=== PATIENT | female | born 1940 | race Two or more races ===

== ENCOUNTER 2022-09-19 03:29 | Inpatient (IN) | payer MEDICARE, OTHER ==
[~2022-09-19] VITALS: Ht 152.4 cm; Wt 88.5 kg
[2022-09-19] MEDS ORDERED: hydrALAZINE HCL IV 20 MG VIAL IV PRN (05:30)
[2022-09-19] MEDS ORDERED: ONDANSETRON HCL/PF 4 MG/2 ML VIAL IVP PRN ×2 (05:30→14:30)
[2022-09-19] MEDS ORDERED: *INSULIN REGULAR(HUMULIN R)HUM 100 UNIT/ML VIAL SQ PRN (05:30)
[2022-09-19] MEDS ORDERED: ACETAMINOPHEN 325 MG TABLET PO PRN (05:30)
[2022-09-19] MEDS ORDERED: INSULIN REGULAR, HUMAN 100 UNIT/ML 3 ML VIAL SQ PRN (05:30)
[2022-09-19] MEDS ORDERED: DEXTROSE 50%-WATER 50 ML DISP.SYRIN IV PRN ×2 (05:30→12:00)
[2022-09-19] MEDS ORDERED: MORPHINE SULFATE INJ 2 MG/ML DISP.SYRIN IV PRN (05:30)
[2022-09-19] MEDS ORDERED: CEFEPIME 1 GM in IV D5W 50 ML IV ONE (06:00)
[2022-09-19] MEDS: AZITHROMYCIN 500 MG in IV D5W 250 ML IV SCH (06:43)
[2022-09-19] MEDS ORDERED: BLOOD SUGAR DIAGNOSTIC 1 EACH STRIP VI SCH (07:30)
[2022-09-19] MEDS ORDERED: CEFEPIME 2 GM in IV D5W 100 ML IV SCH (08:00)
[2022-09-19] MEDS ORDERED: HEPARIN SODIUM, PORCINE 5000 UNITS/1 ML VIAL SQ SCH (09:00)
[2022-09-19] MEDS: BLOOD SUGAR DIAGNOSTIC 1 EACH STRIP IN SCH ×3 (11:53→21:07)
[2022-09-19 12:00] VITALS: BP 134/86; TEMP 98.1; O2SAT 99
[2022-09-19 12:33] LABS: BASOPHILS % (AUTO) 0.5 % (0.0-2.0); EOSINOPHILS % (AUTO) 1.2 % (0.0-6.0); HEMATOCRIT 35 % (33-45); HEMOGLOBIN 11.6 g/dL (11.5-14.8); LYMPHOCYTES # (AUTO) 0.6 K/uL (0.8-4.8); LYMPHOCYTES % (AUTO) 9.6 % (20.0-44.0); MEAN CORPUSCULAR HGB CONC 34 g/dl (31.0-36.0); MEAN CORPUSCULAR VOLUME 103 fL (82-100); MONOCYTES # (AUTO) 0.4 K/uL (0.1-1.30); MONOCYTES % (AUTO) 6.6 % (2.0-12.0); NEUTROPHILS # (AUTO) 5.2 K/uL (1.8-8.9); NEUTROPHILS % (AUTO) 82.1 % (43.0-81.0); PLATELET COUNT (AUTO) 93 K/uL (150-450); RED BLOOD CELL COUNT(AUTO) 3.37 MIL/uL (4.0-5.2); WHITE BLOOD COUNT (AUTO) 6.4 K/uL (4.3-11.0)
[2022-09-19 12:42] LABS: CALCIUM, SERUM 8.5 mg/dL (8.5-10.1); CARBON DIOXIDE 31 mmol/L (21-32); CHLORIDE 104 mmol/L (98-107); CREATININE 0.5 mg/dL (0.6-1.3); GLUCOSE 213 mg/dL (74-106); MAGNESIUM 1.7 mg/dL (1.8-2.4); PHOSPHORUS 3.8 mg/dL (2.5-4.9); POTASSIUM 3.8 mmol/L (3.5-5.1); SODIUM SERUM 141 mmol/L (136-145); UREA NITROGEN, BLOOD 18 mg/dL (7-18)
[2022-09-19] MEDS: INSULIN REGULAR, HUMAN 100 UNIT/ML 3 ML VIAL SQ PRN (13:00)
[2022-09-19] MEDS ORDERED: hydrALAZINE HCL 25 MG TABLET PO SCH (14:30)
[2022-09-19] MEDS ORDERED: GABAPENTIN 400 MG CAPSULE PO SCH (14:30)
[2022-09-19] MEDS ORDERED: ZOLPIDEM TARTRATE 5 MG TABLET PO PRN (14:30)
[2022-09-19] MEDS: METOPROLOL SUCCINATE 50 MG TAB.SR.24H PO SCH (14:57)
[2022-09-19] MEDS: hydrALAZINE HCL 25 MG TABLET PO SCH ×2 (14:57→21:06)
[2022-09-19] MEDS: METFORMIN 500 MG TABLET PO SCH (14:57)
[2022-09-19] MEDS: DIGOXIN 0.125 MG TABLET PO SCH (14:57)
[2022-09-19] MEDS: APIXABAN 5 MG TABLET PO SCH ×2 (15:00→21:07)
[2022-09-19] MEDS ORDERED: KEY,NONCONTROL,TO KEEP IN PYXI 1 EA MC ONE (15:42)
[2022-09-19] MEDS: GUAIFENESIN LA 600 MG TABLET.SA PO SCH (16:14)
[2022-09-19] MEDS: DOCUSATE SODIUM 100 MG CAPSULE PO SCH (16:14)
[2022-09-19] MEDS ORDERED: HOME MED MISCELLANEOUS TP PRN (16:30)
[2022-09-19] MEDS ORDERED: DICLOFENAC 1% TP SCH (17:00)
[2022-09-19 20:00] VITALS: BP 135/80; TEMP 98.2; O2SAT 99
[2022-09-19] MEDS: GABAPENTIN 400 MG CAPSULE PO SCH (21:05)
[2022-09-19] MEDS: CEFTRIAXONE 1 G in IV D5W 50 ML IV SCH (21:06)
[2022-09-20] VITALS: BP 147/99; TEMP 97.6; O2SAT 95
[2022-09-20 04:00] VITALS: BP 134/74; TEMP 97.9; O2SAT 95
[2022-09-20] MEDS: AZITHROMYCIN 500 MG in IV D5W 250 ML IV SCH (05:30)
[2022-09-20 06:15] LABS: BILIRUBIN,URINE NEGATIVE (NEGATIVE); COLOR,URINE YELLOW (YELLOW); LEUKOCYTE ESTERASE ,URINE NEGATIVE (NEGATIVE); NITRITE, URINE NEGATIVE (NEGATIVE); PROTEIN,URINE NEGATIVE (NEGATIVE); UGLUCOSE NEGATIVE (NEGATIVE); UROBILINOGEN,URINE 0.2 EU/dL (0.2)
[2022-09-20] MEDS: BLOOD SUGAR DIAGNOSTIC 1 EACH STRIP IN SCH ×4 (07:34→21:35)
[2022-09-20 07:38] LABS: BASOPHILS % (AUTO) 0.7 % (0.0-2.0); HEMATOCRIT 35 % (33-45); HEMOGLOBIN 11.9 g/dL (11.5-14.8); LYMPHOCYTES # (AUTO) 0.9 K/uL (0.8-4.8); LYMPHOCYTES % (AUTO) 20.3 % (20.0-44.0); MEAN CORPUSCULAR HGB CONC 34 g/dl (31.0-36.0); MEAN CORPUSCULAR VOLUME 103 fL (82-100); MONOCYTES # (AUTO) 0.5 K/uL (0.1-1.30); MONOCYTES % (AUTO) 11.8 % (2.0-12.0); NEUTROPHILS # (AUTO) 2.9 K/uL (1.8-8.9); NEUTROPHILS % (AUTO) 64.2 % (43.0-81.0); PLATELET COUNT (AUTO) 94 K/uL (150-450); RED BLOOD CELL COUNT(AUTO) 3.43 MIL/uL (4.0-5.2); WHITE BLOOD COUNT (AUTO) 4.6 K/uL (4.3-11.0)
[2022-09-20 08:00] VITALS: BP 126/68; TEMP 98.2; O2SAT 95
[2022-09-20 08:00] LABS: CHOLESTEROL 105 mg/dL (<200); HDL CHOLESTEROL 51 mg/dL (40-60); LDL 46 mg/dL (0-99); TRIGLYCERIDES 45 mg/dL (30-150)
[2022-09-20 08:02] LABS: IRON, SERUM 82 ug/dl (50-175); TOTAL IRON BINDING CAPACITY 267 ug/dl (250-450)
[2022-09-20 08:08] LABS: ALANINE AMINOTRANSFERASE 25 U/L (12-78); ALBUMIN 3.1 g/dL (3.4-5.0); ALKALINE PHOSPHATASE 38 U/L (46-116); ASPARTATE AMINOTRANSFERASE 19 U/L (15-37); BILIRUBIN,TOTAL 0.7 mg/dL (0.2-1.0); CALCIUM, SERUM 8.6 mg/dL (8.5-10.1); CARBON DIOXIDE 33 mmol/L (21-32); CHLORIDE 105 mmol/L (98-107); CREATININE 0.4 mg/dL (0.6-1.3); GLUCOSE 122 mg/dL (74-106); MAGNESIUM 1.8 mg/dL (1.8-2.4); POTASSIUM 3.8 mmol/L (3.5-5.1); SODIUM SERUM 142 mmol/L (136-145); TOTAL PROTEIN, SERUM 6.1 g/dL (6.4-8.2); UREA NITROGEN, BLOOD 11 mg/dL (7-18)
[2022-09-20] MEDS ORDERED: BUPRENORPHINE 20 MCG/HR TP SCH (09:00)
[2022-09-20] MEDS: METOPROLOL SUCCINATE 50 MG TAB.SR.24H PO SCH (09:39)
[2022-09-20] MEDS: CHOLECALCIFEROL 1,000 UNIT TABLET (VIT D3) PO SCH (09:40)
[2022-09-20] MEDS: DOCUSATE SODIUM 100 MG CAPSULE PO SCH ×2 (09:41→16:36)
[2022-09-20] MEDS: LISINOPRIL (20MG) 20 MG TABLET PO SCH (09:41)
[2022-09-20] MEDS: GUAIFENESIN LA 600 MG TABLET.SA PO SCH ×2 (09:41→16:36)
[2022-09-20] MEDS: hydrALAZINE HCL 25 MG TABLET PO SCH ×2 (09:42→20:36)
[2022-09-20] MEDS: METFORMIN 500 MG TABLET PO SCH (09:42)
[2022-09-20] MEDS: FERROUS SULFATE (325 MG) 325 MG/TAB TABLET PO SCH (09:42)
[2022-09-20] MEDS: APIXABAN 5 MG TABLET PO SCH ×2 (09:44→20:37)
[2022-09-20] MEDS: PANTOPRAZOLE 40 MG TABLET.DR PO SCH (09:47)
[2022-09-20] MEDS: CEFTRIAXONE 1 G in IV D5W 50 ML IV SCH ×2 (09:47→20:39)
[2022-09-20 12:00] VITALS: BP 125/83; TEMP 98.2; O2SAT 95
[2022-09-20] MEDS: DIGOXIN 0.125 MG TABLET PO SCH (12:43)
[2022-09-20] MEDS ORDERED: KEY,NONCONTROL,TO KEEP IN PYXI 1 EA MC ONE (13:55)
[2022-09-20] MEDS ORDERED: FUROSEMIDE 20 MG TABLET PO SCH (14:00)
[2022-09-20 16:00] VITALS: BP 144/81; TEMP 97.9; O2SAT 95
[2022-09-20] MEDS ORDERED: PANT40TA2 PO (16:35)
[2022-09-20] MEDS ORDERED: APIX5TAB PO (16:35)
[2022-09-20] MEDS ORDERED: FERR325T23 PO (16:35)
[2022-09-20] MEDS ORDERED: METO-358 PO (16:35)
[2022-09-20] MEDS ORDERED: LISI40TA13 PO (16:35)
[2022-09-20] MEDS ORDERED: DIGO125T PO (16:35)
[2022-09-20] MEDS ORDERED: HYDR-4076 PO (16:35)
[2022-09-20] MEDS ORDERED: VOLTAREN GEL TP (16:35)
[2022-09-20] MEDS ORDERED: [UNRECOGNIZED DRUG - OTHER] PO (16:36)
[2022-09-20] MEDS ORDERED: GABA-536 PO (16:36)
[2022-09-20] MEDS ORDERED: BUPR1PAT21 TD (16:36)
[2022-09-20] MEDS ORDERED: METF-440 PO (16:36)
[2022-09-20] MEDS: INSULIN REGULAR, HUMAN 100 UNIT/ML 3 ML VIAL SQ PRN (16:49)
[2022-09-20 20:00] VITALS: BP 142/81; TEMP 98.3; O2SAT 93
[2022-09-20] MEDS: GABAPENTIN 400 MG CAPSULE PO SCH (20:39)
[2022-09-20] MEDS: *INSULIN REGULAR(HUMULIN R)HUM 100 UNIT/ML VIAL SQ PRN (20:43)
[2022-09-20] MEDS: hydrOXYzine HCL SYRUP 10 MG/5 ML UDC PO PRN (20:44)
[2022-09-21] VITALS (7 sets, daily range): BP systolic 110–164; BP diastolic 62–86; TEMP 97.5–98.9; O2SAT 95–98
[2022-09-21] MEDS: AZITHROMYCIN 500 MG in IV D5W 250 ML IV SCH (06:01)
[2022-09-21 06:36] LABS: BASOPHILS % (AUTO) 0.5 % (0.0-2.0); HEMATOCRIT 37 % (33-45); HEMOGLOBIN 12.4 g/dL (11.5-14.8); LYMPHOCYTES # (AUTO) 1.4 K/uL (0.8-4.8); LYMPHOCYTES % (AUTO) 30.3 % (20.0-44.0); MEAN CORPUSCULAR HGB CONC 33 g/dl (31.0-36.0); MEAN CORPUSCULAR VOLUME 103 fL (82-100); MONOCYTES # (AUTO) 0.6 K/uL (0.1-1.30); MONOCYTES % (AUTO) 12.3 % (2.0-12.0); NEUTROPHILS # (AUTO) 2.5 K/uL (1.8-8.9); NEUTROPHILS % (AUTO) 52.9 % (43.0-81.0); PLATELET COUNT (AUTO) 119 K/uL (150-450); RED BLOOD CELL COUNT(AUTO) 3.61 MIL/uL (4.0-5.2); WHITE BLOOD COUNT (AUTO) 4.7 K/uL (4.3-11.0)
[2022-09-21 06:59] LABS: CALCIUM, SERUM 9.3 mg/dL (8.5-10.1); CARBON DIOXIDE 35 mmol/L (21-32); CHLORIDE 103 mmol/L (98-107); CREATININE 0.5 mg/dL (0.6-1.3); GLUCOSE 111 mg/dL (74-106); MAGNESIUM 1.8 mg/dL (1.8-2.4); PHOSPHORUS 4.6 mg/dL (2.5-4.9); SODIUM SERUM 145 mmol/L (136-145); UREA NITROGEN, BLOOD 14 mg/dL (7-18)
[2022-09-21] MEDS: BLOOD SUGAR DIAGNOSTIC 1 EACH STRIP IN SCH ×4 (08:33→22:19)
[2022-09-21] MEDS: FUROSEMIDE 40 MG/4 ML VIAL IV SCH ×3 (08:45→16:10)
[2022-09-21] MEDS: PANTOPRAZOLE 40 MG TABLET.DR PO SCH (08:45)
[2022-09-21] MEDS: POTASSIUM CHLORIDE 20 MEQ TAB.PRT.SR PO SCH ×3 (08:45→11:32)
[2022-09-21] MEDS: APIXABAN 5 MG TABLET PO SCH ×2 (09:51→21:59)
[2022-09-21] MEDS: METFORMIN 500 MG TABLET PO SCH (09:52)
[2022-09-21] MEDS: METOPROLOL SUCCINATE 50 MG TAB.SR.24H PO SCH (09:52)
[2022-09-21] MEDS: DOCUSATE SODIUM 100 MG CAPSULE PO SCH ×2 (09:52→16:09)
[2022-09-21] MEDS: LISINOPRIL (20MG) 20 MG TABLET PO SCH (09:53)
[2022-09-21] MEDS: CHOLECALCIFEROL 1,000 UNIT TABLET (VIT D3) PO SCH (09:53)
[2022-09-21] MEDS: FERROUS SULFATE (325 MG) 325 MG/TAB TABLET PO SCH (09:54)
[2022-09-21] MEDS: CEFTRIAXONE 1 G in IV D5W 50 ML IV SCH (09:54)
[2022-09-21] MEDS: hydrALAZINE HCL 25 MG TABLET PO SCH ×2 (09:54→21:57)
[2022-09-21] MEDS: GUAIFENESIN LA 600 MG TABLET.SA PO SCH ×2 (09:55→16:09)
[2022-09-21] MEDS: MAG HYDROX/AL HYDROX/SIMETH 30 ML UDC PO PRN (11:57)
[2022-09-21] MEDS: DIGOXIN 0.125 MG TABLET PO SCH (12:38)
[2022-09-21] MEDS: INSULIN REGULAR, HUMAN 100 UNIT/ML 3 ML VIAL SQ PRN (17:19)
[2022-09-21] MEDS: hydrOXYzine HCL SYRUP 10 MG/5 ML UDC PO PRN (17:21)
[2022-09-21] MEDS: GABAPENTIN 400 MG CAPSULE PO SCH (20:04)
[2022-09-21] MEDS: *INSULIN REGULAR(HUMULIN R)HUM 100 UNIT/ML VIAL SQ PRN (22:20)
[2022-09-22] VITALS: BP 112/61; TEMP 98.2; O2SAT 97
[2022-09-22 04:00] VITALS: BP 117/69; TEMP 97.9; O2SAT 95
[2022-09-22] MEDS: AZITHROMYCIN 250 MG TABLET PO SCH (06:22)
[2022-09-22 06:43] LABS: BASOPHILS % (AUTO) 0.6 % (0.0-2.0); HEMATOCRIT 38 % (33-45); HEMOGLOBIN 12.8 g/dL (11.5-14.8); LYMPHOCYTES # (AUTO) 1.6 K/uL (0.8-4.8); LYMPHOCYTES % (AUTO) 25.8 % (20.0-44.0); MEAN CORPUSCULAR HGB CONC 34 g/dl (31.0-36.0); MEAN CORPUSCULAR VOLUME 102 fL (82-100); MONOCYTES # (AUTO) 0.7 K/uL (0.1-1.30); MONOCYTES % (AUTO) 10.7 % (2.0-12.0); NEUTROPHILS # (AUTO) 3.8 K/uL (1.8-8.9); NEUTROPHILS % (AUTO) 59.9 % (43.0-81.0); PLATELET COUNT (AUTO) 134 K/uL (150-450); RED BLOOD CELL COUNT(AUTO) 3.74 MIL/uL (4.0-5.2); WHITE BLOOD COUNT (AUTO) 6.3 K/uL (4.3-11.0)
[2022-09-22] MEDS: BLOOD SUGAR DIAGNOSTIC 1 EACH STRIP IN SCH ×4 (07:04→21:09)
[2022-09-22] MEDS: INSULIN REGULAR, HUMAN 100 UNIT/ML 3 ML VIAL SQ PRN ×4 (07:07→21:45)
[2022-09-22 07:27] LABS: ALANINE AMINOTRANSFERASE 22 U/L (12-78); ALBUMIN 3.5 g/dL (3.4-5.0); ALKALINE PHOSPHATASE 40 U/L (46-116); ASPARTATE AMINOTRANSFERASE 18 U/L (15-37); BILIRUBIN,TOTAL 0.6 mg/dL (0.2-1.0); CALCIUM, SERUM 9.8 mg/dL (8.5-10.1); CARBON DIOXIDE 38 mmol/L (21-32); CHLORIDE 99 mmol/L (98-107); CREATININE 0.5 mg/dL (0.6-1.3); GLUCOSE 122 mg/dL (74-106); MAGNESIUM 1.9 mg/dL (1.8-2.4); PHOSPHORUS 5.4 mg/dL (2.5-4.9); POTASSIUM 4.2 mmol/L (3.5-5.1); SODIUM SERUM 144 mmol/L (136-145); TOTAL PROTEIN, SERUM 6.8 g/dL (6.4-8.2); UREA NITROGEN, BLOOD 24 mg/dL (7-18)
[2022-09-22 08:00] VITALS: BP 104/71; TEMP 98.5; O2SAT 97
[2022-09-22] MEDS: LISINOPRIL (20MG) 20 MG TABLET PO SCH (08:42)
[2022-09-22] MEDS: CHOLECALCIFEROL 1,000 UNIT TABLET (VIT D3) PO SCH (08:49)
[2022-09-22] MEDS: METOPROLOL SUCCINATE 50 MG TAB.SR.24H PO SCH (08:49)
[2022-09-22] MEDS: GUAIFENESIN LA 600 MG TABLET.SA PO SCH ×2 (08:50→17:19)
[2022-09-22] MEDS: METFORMIN 500 MG TABLET PO SCH (08:50)
[2022-09-22] MEDS: hydrALAZINE HCL 25 MG TABLET PO SCH ×2 (08:50→20:56)
[2022-09-22] MEDS: DOCUSATE SODIUM 100 MG CAPSULE PO SCH ×2 (08:50→17:19)
[2022-09-22] MEDS: CEFTRIAXONE 2 G in IV D5W 100 ML IV SCH (08:51)
[2022-09-22] MEDS: APIXABAN 5 MG TABLET PO SCH ×2 (08:54→20:56)
[2022-09-22] MEDS ORDERED: FUROSEMIDE 20 MG/2 ML VIAL IV SCH (09:00)
[2022-09-22] MEDS: PANTOPRAZOLE 40 MG TABLET.DR PO SCH (09:09)
[2022-09-22] MEDS ORDERED: FUROSEMIDE 20 MG/2 ML VIAL IV ONE (09:30)
[2022-09-22 12:00] VITALS: BP 103/70; TEMP 98.7; O2SAT 95
[2022-09-22] MEDS: DIGOXIN 0.125 MG TABLET PO SCH (13:17)
[2022-09-22 16:00] VITALS: BP 136/69; TEMP 98.2; O2SAT 96
[2022-09-22 20:00] VITALS: BP 120/65; TEMP 98; O2SAT 95
[2022-09-22] MEDS: GABAPENTIN 400 MG CAPSULE PO SCH (20:55)
[2022-09-22] MEDS: MAG HYDROX/AL HYDROX/SIMETH 30 ML UDC PO PRN (22:19)
[2022-09-23] VITALS: BP 105/53; TEMP 98; O2SAT 97
[2022-09-23 04:00] VITALS: BP 110/60; TEMP 98; O2SAT 97
[2022-09-23] MEDS: AZITHROMYCIN 250 MG TABLET PO SCH (06:01)
[2022-09-23 06:49] LABS: BASOPHILS % (AUTO) 0.8 % (0.0-2.0); EOSINOPHILS % (AUTO) 4.2 % (0.0-6.0); HEMATOCRIT 40 % (33-45); HEMOGLOBIN 13.5 g/dL (11.5-14.8); LYMPHOCYTES # (AUTO) 2.1 K/uL (0.8-4.8); MEAN CORPUSCULAR HGB CONC 34 g/dl (31.0-36.0); MEAN CORPUSCULAR VOLUME 102 fL (82-100); MONOCYTES # (AUTO) 0.6 K/uL (0.1-1.30); MONOCYTES % (AUTO) 11.4 % (2.0-12.0); NEUTROPHILS # (AUTO) 2.6 K/uL (1.8-8.9); NEUTROPHILS % (AUTO) 46.6 % (43.0-81.0); PLATELET COUNT (AUTO) 136 K/uL (150-450); RED BLOOD CELL COUNT(AUTO) 3.91 MIL/uL (4.0-5.2); WHITE BLOOD COUNT (AUTO) 5.5 K/uL (4.3-11.0)
[2022-09-23 07:32] LABS: CALCIUM, SERUM 10.2 mg/dL (8.5-10.1); CREATININE 0.6 mg/dL (0.6-1.3); MAGNESIUM 1.8 mg/dL (1.8-2.4); PHOSPHORUS 5.3 mg/dL (2.5-4.9); POTASSIUM 4.1 mmol/L (3.5-5.1)
[2022-09-23] MEDS: BLOOD SUGAR DIAGNOSTIC 1 EACH STRIP IN SCH ×4 (07:38→21:51)
[2022-09-23 08:00] VITALS: BP 114/59; TEMP 98.1; O2SAT 97
[2022-09-23] MEDS: CHOLECALCIFEROL 1,000 UNIT TABLET (VIT D3) PO SCH (08:23)
[2022-09-23] MEDS: hydrALAZINE HCL 25 MG TABLET PO SCH ×2 (08:24→20:51)
[2022-09-23] MEDS: DOCUSATE SODIUM 100 MG CAPSULE PO SCH ×2 (08:24→16:36)
[2022-09-23] MEDS: LISINOPRIL (20MG) 20 MG TABLET PO SCH (08:25)
[2022-09-23] MEDS: GUAIFENESIN LA 600 MG TABLET.SA PO SCH ×2 (08:25→16:36)
[2022-09-23] MEDS: PANTOPRAZOLE 40 MG TABLET.DR PO SCH (08:25)
[2022-09-23] MEDS: METFORMIN 500 MG TABLET PO SCH (08:25)
[2022-09-23] MEDS: METOPROLOL SUCCINATE 50 MG TAB.SR.24H PO SCH (08:26)
[2022-09-23] MEDS: APIXABAN 5 MG TABLET PO SCH ×2 (08:27→21:07)
[2022-09-23] MEDS: CEFTRIAXONE 2 G in IV D5W 100 ML IV SCH (08:29)
[2022-09-23] MEDS: INSULIN REGULAR, HUMAN 100 UNIT/ML 3 ML VIAL SQ PRN ×2 (08:38→17:04)
[2022-09-23] MEDS ORDERED: FUROSEMIDE 20 MG/2 ML VIAL IV SCH (09:00)
[2022-09-23] MEDS: ACETAMINOPHEN 325 MG TABLET PO PRN ×2 (11:36→16:36)
[2022-09-23 12:00] VITALS: BP 104/79; TEMP 98.1; O2SAT 97
[2022-09-23] MEDS: DIGOXIN 0.125 MG TABLET PO SCH (12:14)
[2022-09-23 16:00] VITALS: BP 123/84; TEMP 98.2; O2SAT 94
[2022-09-23 20:00] VITALS: BP 123/84; TEMP 98.2; O2SAT 94
[2022-09-23] MEDS: GABAPENTIN 400 MG CAPSULE PO SCH (20:50)
[2022-09-23] MEDS ORDERED: ACET325T53 PO (20:54)
[2022-09-23] MEDS ORDERED: PANT40TA49 PO (20:54)
[2022-09-23] MEDS ORDERED: METO50TA7 PO (20:54)
[2022-09-23] MEDS ORDERED: METF-440 PO (20:54)
[2022-09-23] MEDS ORDERED: HYDR10SY12 PO (20:54)
[2022-09-23] MEDS ORDERED: INSU100V28 SQ (20:54)
[2022-09-23] MEDS ORDERED: ONDA4VIA23 PO (20:54)
[2022-09-23] MEDS ORDERED: *INS REG3 SQ (20:54)
[2022-09-23] MEDS ORDERED: DOCU100C36 PO (20:54)
[2022-09-23] MEDS ORDERED: DIGO125T PO (20:54)
[2022-09-23] MEDS ORDERED: ZOLP5TAB8 PO (20:54)
[2022-09-23] MEDS ORDERED: Blood Sugar Diagnostic IN (20:54)
[2022-09-23] MEDS ORDERED: APIX5TAB PO (20:54)
[2022-09-23] MEDS ORDERED: GUAI600T53 PO (20:54)
[2022-09-23] MEDS ORDERED: LISI20TA30 PO (20:54)
[2022-09-23] MEDS ORDERED: DEXT50DI8 IV (20:54)
[2022-09-23] MEDS ORDERED: CHOL100040 PO (20:54)
[2022-09-23] MEDS ORDERED: HYDR-4076 PO (20:54)
[2022-09-23] MEDS ORDERED: GABA-536 PO (20:54)
[2022-09-23] MEDS ORDERED: CEFT2VIA14 IV (20:54)
[2022-09-23] MEDS ORDERED: MAG30ORA PO (20:54)
[2022-09-23] MEDS: *INSULIN REGULAR(HUMULIN R)HUM 100 UNIT/ML VIAL SQ PRN (22:14)
[2022-09-24 00:08] VITALS: BP 138/71; TEMP 98; O2SAT 100
[2022-09-24 04:17] VITALS: BP 140/65; TEMP 98; O2SAT 100
[2022-09-24 06:12] LABS: BASOPHILS # (AUTO) 0.1 K/uL (0.0-0.2); BASOPHILS % (AUTO) 1.4 % (0.0-2.0); EOSINOPHILS % (AUTO) 4.4 % (0.0-6.0); HEMATOCRIT 40 % (33-45); HEMOGLOBIN 13.2 g/dL (11.5-14.8); LYMPHOCYTES # (AUTO) 1.7 K/uL (0.8-4.8); LYMPHOCYTES % (AUTO) 31.6 % (20.0-44.0); MEAN CORPUSCULAR HGB CONC 33 g/dl (31.0-36.0); MEAN CORPUSCULAR VOLUME 102 fL (82-100); MONOCYTES # (AUTO) 0.6 K/uL (0.1-1.30); MONOCYTES % (AUTO) 11.2 % (2.0-12.0); NEUTROPHILS # (AUTO) 2.7 K/uL (1.8-8.9); NEUTROPHILS % (AUTO) 51.4 % (43.0-81.0); PLATELET COUNT (AUTO) 134 K/uL (150-450); RED BLOOD CELL COUNT(AUTO) 3.92 MIL/uL (4.0-5.2); WHITE BLOOD COUNT (AUTO) 5.2 K/uL (4.3-11.0)
[2022-09-24 06:28] LABS: CALCIUM, SERUM 9.4 mg/dL (8.5-10.1); CARBON DIOXIDE 39 mmol/L (21-32); CHLORIDE 98 mmol/L (98-107); CREATININE 0.5 mg/dL (0.6-1.3); GLUCOSE 119 mg/dL (74-106); MAGNESIUM 1.8 mg/dL (1.8-2.4); PHOSPHORUS 4.4 mg/dL (2.5-4.9); POTASSIUM 3.8 mmol/L (3.5-5.1); SODIUM SERUM 138 mmol/L (136-145); UREA NITROGEN, BLOOD 26 mg/dL (7-18)
[2022-09-24] MEDS: BLOOD SUGAR DIAGNOSTIC 1 EACH STRIP IN SCH ×2 (07:30→11:16)
[2022-09-24] MEDS: PANTOPRAZOLE 40 MG TABLET.DR PO SCH (07:47)
[2022-09-24 08:00] VITALS: BP 140/65; TEMP 98.2; O2SAT 100
[2022-09-24] MEDS: LISINOPRIL (20MG) 20 MG TABLET PO SCH (09:00)
[2022-09-24] MEDS: METOPROLOL SUCCINATE 50 MG TAB.SR.24H PO SCH (09:00)
[2022-09-24] MEDS: CHOLECALCIFEROL 1,000 UNIT TABLET (VIT D3) PO SCH (09:02)
[2022-09-24] MEDS: GUAIFENESIN LA 600 MG TABLET.SA PO SCH (09:02)
[2022-09-24] MEDS: DOCUSATE SODIUM 100 MG CAPSULE PO SCH (09:02)
[2022-09-24] MEDS: METFORMIN 500 MG TABLET PO SCH (09:02)
[2022-09-24] MEDS: hydrALAZINE HCL 25 MG TABLET PO SCH (09:02)
[2022-09-24] MEDS: APIXABAN 5 MG TABLET PO SCH (09:04)
[2022-09-24] MEDS: CEFTRIAXONE 2 G in IV D5W 100 ML IV SCH (09:15)
[2022-09-24] MEDS: INSULIN REGULAR, HUMAN 100 UNIT/ML 3 ML VIAL SQ PRN (11:20)
[2022-09-24 12:00] VITALS: BP_SYST 125; BP_SYST 135; BP_DIAS 75; TEMP 98.5; TEMP 98.7; O2SAT 100
== END 2022-09-24 12:40 | DRG 193 ==
LOC: MEDSG1 03:29 → TELE1 05:23
PROVIDERS: ADMIT Internal Medicine; ATTEND Internal Medicine
DX: J18.9 Pneumonia, unspecified organism (principal); I11.0 Hypertensive heart disease with heart failure; I50.33 Acute on chronic diastolic (congestive) heart failure; N39.0 Urinary tract infection, site not specified; K21.9 Gastro-esophageal reflux disease without esophagitis; E78.5 Hyperlipidemia, unspecified; Z79.84 Long term (current) use of oral hypoglycemic drugs; G89.29 Other chronic pain; Z79.01 Long term (current) use of anticoagulants; Z79.82 Long term (current) use of aspirin; R26.2 Difficulty in walking, not elsewhere classified; Z91.81 History of falling; I08.0 Rheumatic disorders of both mitral and aortic valves; E11.9 Type 2 diabetes mellitus without complications; I27.20 Pulmonary hypertension, unspecified; E66.01 Morbid (severe) obesity due to excess calories; Z68.38 Body mass index [BMI] 38.0-38.9, adult; I48.91 Unspecified atrial fibrillation; Z79.899 Other long term (current) drug therapy; Z96.653 Presence of artificial knee joint, bilateral; M17.0 Bilateral primary osteoarthritis of knee; M06.9 Rheumatoid arthritis, unspecified; Z98.1 Arthrodesis status
CPT/HCPCS: 36415; 71045-TC; 80048-TC; 80053-TC; 80061-TC; 82962-TC; 83540-TC; 83605-TC; 83735-TC; 83880; 84100-TC; 84484-TC; 85025-TC; 87040-TC; 87081-TC; 87086-TC; 93307-TC; 94799-TC; 97112-TC; 97116-TC; 97530-TC; A4223; A6253; G0378; J0456; J0692; J0696; J1644; J1815; J1940; J2270; J7050; J7060; Q0177

== ENCOUNTER 2023-04-06 22:48 | Inpatient (IN) | payer MEDICARE, OTHER ==
[~2023-04-06] VITALS: Ht 152.4 cm; Wt 77.6 kg
[~2023-04-06 22:48] MED LIST: *INS REG3 SQ; ACET325T53 PO; APIX5TAB PO; BUPR1PAT21 TD; Blood Sugar Diagnostic IN; CEFT2VIA14 IV; CHOL100040 PO; DEXT50DI8 IV; DIGO125T PO; DOCU100C36 PO; FERR325T23 PO; GABA-536 PO; GUAI600T53 PO; HYDR-4076 PO; HYDR10SY12 PO; INSU100V28 SQ; LISI20TA30 PO; LISI40TA13 PO; MAG30ORA PO; METF-440 PO; METO-358 PO; METO50TA7 PO; ONDA4VIA23 PO; PANT40TA2 PO; PANT40TA49 PO; VOLTAREN GEL TP; ZOLP5TAB8 PO; [UNRECOGNIZED DRUG - OTHER] PO
[2023-04-07 00:45] VITALS: BP 142/96; TEMP 98; O2SAT 97
[2023-04-07] MEDS ORDERED: ONDANSETRON HCL/PF 4 MG/2 ML VIAL IVP PRN (02:00)
[2023-04-07] MEDS ORDERED: Z GUARD REMEDY 4 OZ OINT TP PRN (02:00)
[2023-04-07] MEDS ORDERED: ALBUTEROL FS 2.5 MG/3 ML VIAL.NEB NEB PRN (02:00)
[2023-04-07] MEDS ORDERED: IPRATROPIUM NEB FS 0.5 MG/2.5 ML AMPUL.NEB NEB PRN (02:00)
[2023-04-07] MEDS ORDERED: MAGNESIUM HYDROXIDE 30 ML UDC PO PRN (02:00)
[2023-04-07 02:18] LABS: HEMOGLOBIN 12.4 g/dL (11.5-14.8)
[2023-04-07 02:52] LABS: CALCIUM, SERUM 9.2 mg/dL (8.5-10.1); CREATININE 0.6 mg/dL (0.6-1.3); POTASSIUM 3.6 mmol/L (3.5-5.1)
[2023-04-07] MEDS: ZOLPIDEM TARTRATE 5 MG TABLET PO PRN (03:07)
[2023-04-07 04:00] VITALS: BP 136/90; TEMP 98; O2SAT 97
[2023-04-07 08:00] VITALS: BP 130/72; TEMP 98.1; O2SAT 100
[2023-04-07] MEDS ORDERED: MAGN100T3 PO (08:07)
[2023-04-07] MEDS ORDERED: FAMO20TA8 PO (08:07)
[2023-04-07] MEDS ORDERED: ALPR0.5T8 PO (08:07)
[2023-04-07] MEDS ORDERED: TYLENOL #4 PO (08:07)
[2023-04-07] MEDS ORDERED: MULT-1200 PO (08:07)
[2023-04-07] MEDS ORDERED: TOCI400V IV (08:07)
[2023-04-07] MEDS ORDERED: DICL100G26 TP (08:07)
[2023-04-07] MEDS ORDERED: GABA800T11 PO (08:07)
[2023-04-07] MEDS ORDERED: DENO60DI SQ (08:07)
[2023-04-07] MEDS ORDERED: CHOL500062 PO (08:07)
[2023-04-07] MEDS ORDERED: MELA1TAB15 PO (08:07)
[2023-04-07] MEDS: PANTOPRAZOLE 40 MG TABLET.DR PO SCH (08:36)
[2023-04-07] MEDS: ENOXAPARIN SODIUM 40 MG/0.4 ML DISP.SYRIN SQ SCH (08:37)
[2023-04-07 12:00] VITALS: BP 124/99; TEMP 98.4; O2SAT 100
[2023-04-07] MEDS ORDERED: DEXTROSE 50%-WATER 50 ML DISP.SYRIN IV PRN ×2 (15:00→15:30)
[2023-04-07] MEDS: FUROSEMIDE 40 MG/4 ML VIAL IV SCH (15:08)
[2023-04-07] MEDS: LACTULOSE 10 G/15 ML UDC (PYXIS) PO ONE (15:08)
[2023-04-07] MEDS: DIGOXIN 0.125 MG TABLET PO SCH (15:09)
[2023-04-07] MEDS: METOPROLOL SUCCINATE 50 MG TAB.SR.24H PO SCH (15:09)
[2023-04-07] MEDS: FAMOTIDINE (20 MG) 20 MG TABLET PO SCH (15:09)
[2023-04-07] MEDS: CHOLECALCIFEROL 1,000 UNIT TABLET (VIT D3) PO SCH (15:09)
[2023-04-07] MEDS: HYDROCODONE/APAP 5/325MG TABLET PO PRN (15:14)
[2023-04-07] MEDS ORDERED: INSULIN REGULAR, HUMAN 100 UNIT/ML 3 ML VIAL SQ PRN (15:30)
[2023-04-07 16:00] VITALS: BP 127/77; TEMP 98.4; O2SAT 100
[2023-04-07] MEDS: APIXABAN 5 MG TABLET PO SCH (16:04)
[2023-04-07] MEDS: hydrALAZINE HCL 25 MG TABLET PO SCH (16:05)
[2023-04-07] MEDS: BLOOD SUGAR DIAGNOSTIC 1 EACH STRIP IN SCH (17:19)
[2023-04-07] MEDS ORDERED: BLOOD SUGAR DIAGNOSTIC 1 EACH STRIP IN SCH (17:30)
[2023-04-07 20:00] VITALS: BP 146/79; TEMP 98.6; O2SAT 96
[2023-04-07] MEDS: SENNOSIDES 8.6 MG TABLET PO SCH (21:25)
[2023-04-07] MEDS: GABAPENTIN 400 MG CAPSULE PO SCH (21:26)
[2023-04-07] MEDS: ACETAMINOPHEN 325 MG TABLET PO PRN (21:44)
[2023-04-07] MEDS: INSULIN REGULAR, HUMAN 100 UNIT/ML 3 ML VIAL SQ PRN (22:05)
[2023-04-08] VITALS: BP 142/82; TEMP 97.7; O2SAT 98
[2023-04-08 04:00] VITALS: BP 133/90; TEMP 98.7; O2SAT 95
[2023-04-08 06:54] LABS: CALCIUM, SERUM 9.3 mg/dL (8.5-10.1); CARBON DIOXIDE 37 mmol/L (21-32); CHLORIDE 100 mmol/L (98-107); CREATININE 0.6 mg/dL (0.6-1.3); GLUCOSE 109 mg/dL (74-106); MAGNESIUM 1.7 mg/dL (1.8-2.4); PHOSPHORUS 5.6 mg/dL (2.5-4.9); POTASSIUM 3.5 mmol/L (3.5-5.1); SODIUM SERUM 140 mmol/L (136-145); UREA NITROGEN, BLOOD 12 mg/dL (7-18)
[2023-04-08 06:55] LABS: BASOPHILS % (AUTO) 0.5 % (0.0-2.0); EOSINOPHILS # (AUTO) 0.1 K/uL (0.0-0.7); EOSINOPHILS % (AUTO) 3.4 % (0.0-6.0); HEMATOCRIT 42 % (33-45); LYMPHOCYTES # (AUTO) 1.3 K/uL (0.8-4.8); LYMPHOCYTES % (AUTO) 30.1 % (20.0-44.0); MEAN CORPUSCULAR HEMOGLOBIN 35 PG (26.0-33.0); MEAN CORPUSCULAR HGB CONC 34 g/dl (31.0-36.0); MEAN CORPUSCULAR VOLUME 103 fL (82-100); MONOCYTES # (AUTO) 0.5 K/uL (0.1-1.30); MONOCYTES % (AUTO) 10.7 % (2.0-12.0); NEUTROPHILS # (AUTO) 2.4 K/uL (1.8-8.9); NEUTROPHILS % (AUTO) 55.3 % (43.0-81.0); PLATELET COUNT (AUTO) 109 K/uL (150-450); RED BLOOD CELL COUNT(AUTO) 4.04 MIL/uL (4.0-5.2); RED CELL DISTRIBUTION WIDTH 13.5 % (11.5-15.0); WHITE BLOOD COUNT (AUTO) 4.4 K/uL (4.3-11.0)
[2023-04-08 08:00] VITALS: BP 156/95; TEMP 97.5; O2SAT 98
[2023-04-08] MEDS: PANTOPRAZOLE 40 MG TABLET.DR PO SCH (08:46)
[2023-04-08] MEDS: MULTIVITAMINS,THERAGRAN 1 UDTAB TABLET PO SCH (08:46)
[2023-04-08] MEDS: LISINOPRIL (20MG) 20 MG TABLET PO SCH (08:49)
[2023-04-08 10:04] LABS: ABG BASE EXCESS 9.6 mmol/L; ABG OXYGEN SATURATION 92.8 % (92.0-98.5); ABG PCO2 58.5 mmHg (35.0-45.0); ABG PH 7.414 (7.350-7.450); ABG PO2 67.2 mmHg (75.0-100.0); ABG TOTAL HEMOGLOBIN 15.3 G/dL (12.0-16.0); AaDO2 63.4 mmHg; COHb 1.2 % (0.5-1.5); MetHb 0.1 % (0.0-1.5); O2Hb 91.6 % (94.0-97.0); SITE, ABG Left Radial; VENT MODE, BG Nasal Cannula @ 28 %
[2023-04-08] MEDS: MAGNESIUM OXIDE 400 MG TABLET PO ONE (10:43)
[2023-04-08 12:00] VITALS: BP 132/82; TEMP 97.7; O2SAT 97
[2023-04-08 16:00] VITALS: BP 137/89; TEMP 98.1; O2SAT 97
[2023-04-08 20:00] VITALS: BP 151/99; TEMP 98.2; O2SAT 96
[2023-04-08] MEDS: MAG HYDROX/AL HYDROX/SIMETH 30 ML UDC PO PRN (20:19)
[2023-04-09] VITALS: BP 129/88; TEMP 97.5; O2SAT 94
[2023-04-09] MEDS: ZOLPIDEM TARTRATE 5 MG TABLET PO PRN (00:01)
[2023-04-09 04:00] VITALS: BP 140/88; TEMP 98; O2SAT 94
[2023-04-09 08:00] VITALS: BP 138/80; TEMP 98.9; O2SAT 98
[2023-04-09 08:29] LABS: CALCIUM, SERUM 9.3 mg/dL (8.5-10.1); CARBON DIOXIDE 36 mmol/L (21-32); CHLORIDE 98 mmol/L (98-107); CREATININE 0.5 mg/dL (0.6-1.3); GLUCOSE 126 mg/dL (74-106); POTASSIUM 3.7 mmol/L (3.5-5.1); SODIUM SERUM 137 mmol/L (136-145); UREA NITROGEN, BLOOD 15 mg/dL (7-18)
[2023-04-09 12:00] VITALS: BP 105/78; TEMP 98; O2SAT 96
[2023-04-09 16:00] VITALS: BP 104/78; TEMP 98.4; O2SAT 96
[2023-04-09 20:00] VITALS: BP 128/76; TEMP 98.4; O2SAT 98
[2023-04-10] VITALS: BP 126/76; TEMP 98.5; O2SAT 97
[2023-04-10 04:00] VITALS: BP 129/76; TEMP 97.5; O2SAT 98
[2023-04-10 07:09] LABS: CALCIUM, SERUM 9.1 mg/dL (8.5-10.1); CREATININE 0.6 mg/dL (0.6-1.3); POTASSIUM 3.6 mmol/L (3.5-5.1)
[2023-04-10 08:00] VITALS: BP 125/74; TEMP 96.9; O2SAT 98
[2023-04-10 12:00] VITALS: BP 122/90; TEMP 96.1; O2SAT 93
[2023-04-10] MEDS ORDERED: FURO-145 PO (13:38)
[2023-04-10 15:00] VITALS: BP 122/90
== END 2023-04-10 15:30 | disposition home or self-care (01) | DRG 291 ==
LOC: TELE1 04-07 00:08
PROVIDERS: ADMIT Nurse Practitioner Acute Care; ATTEND Nurse Practitioner Acute Care
DX: I11.0 Hypertensive heart disease with heart failure (principal); I50.33 Acute on chronic diastolic (congestive) heart failure; J96.21 Acute and chronic respiratory failure with hypoxia; J96.22 Acute and chronic respiratory failure with hypercapnia; I48.20 Chronic atrial fibrillation, unspecified; E66.2 Morbid (severe) obesity with alveolar hypoventilation; E11.9 Type 2 diabetes mellitus without complications; E78.5 Hyperlipidemia, unspecified; Z79.01 Long term (current) use of anticoagulants; M06.9 Rheumatoid arthritis, unspecified; M19.90 Unspecified osteoarthritis, unspecified site; Z96.653 Presence of artificial knee joint, bilateral; G89.29 Other chronic pain; Z96.82 Presence of neurostimulator; Z68.33 Body mass index [BMI] 33.0-33.9, adult; Z79.899 Other long term (current) drug therapy; Z79.84 Long term (current) use of oral hypoglycemic drugs
CPT/HCPCS: 36415; 36600; 71045-TC; 80048-TC; 80162-TC; 82962-TC; 83735-TC; 83880; 84100-TC; 85025-TC; 85027-TC; 87081-TC; 93307-TC; 97112-TC; 97116-TC; 97530-TC; G0378; J1650; J1815; J1940

== ENCOUNTER 2023-07-12 15:11 | Inpatient (IN) | payer MEDICARE, OTHER ==
[~2023-07-12] VITALS: Ht 152.4 cm; Wt 88.0 kg
[~2023-07-12 15:11] MED LIST changes: -*INS REG3 SQ; -ACET325T53 PO; -BUPR1PAT21 TD; -Blood Sugar Diagnostic IN; -CEFT2VIA14 IV; -CHOL100040 PO; +CHOL500062 PO; +DENO60DI SQ; -DEXT50DI8 IV; +DICL100G26 TP; -DOCU100C36 PO; +FAMO20TA8 PO; -FERR325T23 PO; +FURO-145 PO; -GABA-536 PO; +GABA800T11 PO; -GUAI600T53 PO; -HYDR10SY12 PO; -INSU100V28 SQ; -LISI20TA30 PO; -MAG30ORA PO; +MAGN100T3 PO; +MELA1TAB15 PO; -METO50TA7 PO; +MULT-1200 PO; -ONDA4VIA23 PO; -PANT40TA49 PO; -VOLTAREN GEL TP; -ZOLP5TAB8 PO; -[UNRECOGNIZED DRUG - OTHER] PO
[2023-07-12 16:00] VITALS: BP 136/86; TEMP 97.6; O2SAT 97
[2023-07-12] MEDS ORDERED: ENOXAPARIN SODIUM 40 MG/0.4 ML DISP.SYRIN SQ SCH (17:00)
[2023-07-12] MEDS ORDERED: Z GUARD REMEDY 4 OZ OINT TP PRN (17:00)
[2023-07-12] MEDS ORDERED: ONDANSETRON HCL/PF 4 MG/2 ML VIAL IVP PRN (17:00)
[2023-07-12] MEDS ORDERED: ACET1TAB25 PO (18:32)
[2023-07-12] MEDS ORDERED: TOCI400V IV (18:32)
[2023-07-12] MEDS ORDERED: FURO20TA4 PO (18:32)
[2023-07-12] MEDS ORDERED: MAGNESIUM GLYCINATE PO (18:34)
[2023-07-12] MEDS: ACETAMINOPHEN 325 MG TABLET PO PRN (18:48)
[2023-07-12] MEDS: CEFTRIAXONE 1 G in IV D5W 50 ML IV SCH (19:43)
[2023-07-12 20:00] VITALS: BP 121/80; TEMP 98; TEMP 98.8; O2SAT 95
[2023-07-12] MEDS: IV 1/2NS 1000 ML 1,000 ML IV PRN (21:33)
[2023-07-12] MEDS: ZOLPIDEM TARTRATE 5 MG TABLET PO PRN (22:27)
[2023-07-13 07:56] LABS: BASOPHILS % (AUTO) 0.6 % (0.0-2.0); EOSINOPHILS # (AUTO) 0.1 K/uL (0.0-0.7); EOSINOPHILS % (AUTO) 2.5 % (0.0-6.0); HEMATOCRIT 35 % (33-45); HEMOGLOBIN 11.9 g/dL (11.5-14.8); LYMPHOCYTES # (AUTO) 0.8 K/uL (0.8-4.8); LYMPHOCYTES % (AUTO) 21.2 % (20.0-44.0); MEAN CORPUSCULAR HEMOGLOBIN 35 PG (26.0-33.0); MEAN CORPUSCULAR HGB CONC 34 g/dl (31.0-36.0); MEAN CORPUSCULAR VOLUME 103 fL (82-100); MONOCYTES # (AUTO) 0.3 K/uL (0.1-1.30); MONOCYTES % (AUTO) 8.9 % (2.0-12.0); NEUTROPHILS # (AUTO) 2.6 K/uL (1.8-8.9); NEUTROPHILS % (AUTO) 66.8 % (43.0-81.0); PLATELET COUNT (AUTO) 87 K/uL (150-450); RED CELL DISTRIBUTION WIDTH 14.6 % (11.5-15.0); WHITE BLOOD COUNT (AUTO) 3.9 K/uL (4.3-11.0)
[2023-07-13] MEDS: PANTOPRAZOLE 40 MG TABLET.DR PO SCH (07:58)
[2023-07-13 08:00] VITALS: BP 150/92; TEMP 98.1; O2SAT 99
[2023-07-13 08:20] LABS: CALCIUM, SERUM 8.1 mg/dL (8.5-10.1); CREATININE 0.6 mg/dL (0.6-1.3); MAGNESIUM 1.8 mg/dL (1.8-2.4); PHOSPHORUS 3.8 mg/dL (2.5-4.9); POTASSIUM 3.7 mmol/L (3.5-5.1)
[2023-07-13 09:18] LABS: THYROID STIMULATING HORMONE 0.248 uIU/mL (0.358-3.74)
[2023-07-13 13:00] LABS: ANISOCYTOSIS 1+; BASOPHILS % (MANUAL) 0 % (0.0-2.0); EOSINOPHILS % (MANUAL) 3 % (0-4); LYMPHOCYTES % (MANUAL) 18 % (16-48); MONOCYTES % (MANUAL) 7 % (0-11.0); NEUTROPHILS % (MANUAL) 72 (42-76); PLATELET ESTIMATE DECREASED
[2023-07-13] MEDS ORDERED: PYRIDOXINE HCL PO PRN (14:30)
[2023-07-13] MEDS ORDERED: MELATONIN PO PRN (14:30)
[2023-07-13] MEDS: CHOLECALCIFEROL 1,000 UNIT TABLET (VIT D3) PO SCH (14:52)
[2023-07-13] MEDS ORDERED: ENOXAPARIN SODIUM 40 MG/0.4 ML DISP.SYRIN SQ SCH (15:00)
[2023-07-13 16:00] VITALS: BP_SYST 148; BP_SYST 159; BP_DIAS 79; BP_DIAS 93; TEMP 98; TEMP 98.8; O2SAT 91; O2SAT 97
[2023-07-13] MEDS: MAG HYDROX/AL HYDROX/SIMETH 30 ML UDC PO PRN (16:05)
[2023-07-13] MEDS: hydrALAZINE HCL 25 MG TABLET PO SCH (16:10)
[2023-07-13] MEDS: APIXABAN 5 MG TABLET PO SCH (16:11)
[2023-07-13] MEDS: MAGNESIUM HYDROXIDE 30 ML UDC PO PRN (16:34)
[2023-07-13 20:00] VITALS: BP 167/92; TEMP 98.1; O2SAT 95
[2023-07-13] MEDS: ACETAMINOPHEN W/ CODEINE#3 1 EA TABLET PO PRN (21:20)
[2023-07-13] MEDS: GABAPENTIN 300 MG CAPSULE PO SCH (21:20)
[2023-07-14 04:00] VITALS: BP 141/81
[2023-07-14 07:00] VITALS: BP 148/98; TEMP 98.4; O2SAT 99
[2023-07-14] MEDS: FUROSEMIDE 20 MG TABLET PO SCH (08:16)
[2023-07-14 08:17] LABS: POTASSIUM 3.9 mmol/L (3.5-5.1); SODIUM SERUM 139 mmol/L (136-145)
[2023-07-14] MEDS: DIGOXIN 0.125 MG TABLET PO SCH (08:17)
[2023-07-14] MEDS: METOPROLOL SUCCINATE 50 MG TAB.SR.24H PO SCH (08:17)
[2023-07-14 08:18] LABS: CALCIUM, SERUM 8.3 mg/dL (8.5-10.1); CARBON DIOXIDE 33 mmol/L (21-32); CHLORIDE 101 mmol/L (98-107); CREATININE 0.5 mg/dL (0.6-1.3); GLUCOSE 123 mg/dL (74-106); MAGNESIUM 2.1 mg/dL (1.8-2.4); PHOSPHORUS 3.9 mg/dL (2.5-4.9); UREA NITROGEN, BLOOD 13 mg/dL (7-18)
[2023-07-14] MEDS: LISINOPRIL (20MG) 20 MG TABLET PO SCH (08:18)
[2023-07-14] MEDS: MULTIPLE VIT (LYCOPENE/FA/MV,CA,IRON,MIN/LUT)1 TAB PO SCH (09:06)
[2023-07-14 09:58] LABS: BASOPHILS % (AUTO) 0.8 % (0.0-2.0); EOSINOPHILS # (AUTO) 0.1 K/uL (0.0-0.7); EOSINOPHILS % (AUTO) 3.1 % (0.0-6.0); HEMATOCRIT 38 % (33-45); HEMOGLOBIN 12.7 g/dL (11.5-14.8); LYMPHOCYTES # (AUTO) 1.2 K/uL (0.8-4.8); LYMPHOCYTES % (AUTO) 30.1 % (20.0-44.0); MEAN CORPUSCULAR HEMOGLOBIN 35 PG (26.0-33.0); MEAN CORPUSCULAR HGB CONC 34 g/dl (31.0-36.0); MEAN CORPUSCULAR VOLUME 103 fL (82-100); MONOCYTES # (AUTO) 0.5 K/uL (0.1-1.30); MONOCYTES % (AUTO) 11.5 % (2.0-12.0); NEUTROPHILS # (AUTO) 2.2 K/uL (1.8-8.9); NEUTROPHILS % (AUTO) 54.5 % (43.0-81.0); PLATELET COUNT (AUTO) 87 K/uL (150-450); RED BLOOD CELL COUNT(AUTO) 3.67 MIL/uL (4.0-5.2); WHITE BLOOD COUNT (AUTO) 3.9 K/uL (4.3-11.0)
[2023-07-14 15:08] LABS: EOSINOPHILS % (MANUAL) 2 % (0-4); LYMPHOCYTES % (MANUAL) 27 % (16-48); MONOCYTES % (MANUAL) 11 % (0-11.0); NEUTROPHILS % (MANUAL) 60 (42-76); PLATELET ESTIMATE DECREASED
[2023-07-14 16:21] VITALS: BP 145/82; TEMP 98.4; O2SAT 96
[2023-07-14 20:00] VITALS: BP 130/85; TEMP 98.6; O2SAT 97
[2023-07-15 02:26] VITALS: O2SAT 98
[2023-07-15 04:30] VITALS: O2SAT 93
[2023-07-15 07:00] VITALS: BP 157/87; TEMP 98.8; O2SAT 95
[2023-07-15 07:26] LABS: BASOPHILS % (AUTO) 0.8 % (0.0-2.0); EOSINOPHILS # (AUTO) 0.2 K/uL (0.0-0.7); EOSINOPHILS % (AUTO) 3.8 % (0.0-6.0); HEMATOCRIT 37 % (33-45); HEMOGLOBIN 12.4 g/dL (11.5-14.8); LYMPHOCYTES # (AUTO) 1.1 K/uL (0.8-4.8); LYMPHOCYTES % (AUTO) 24.5 % (20.0-44.0); MEAN CORPUSCULAR HEMOGLOBIN 35 PG (26.0-33.0); MEAN CORPUSCULAR HGB CONC 34 g/dl (31.0-36.0); MEAN CORPUSCULAR VOLUME 103 fL (82-100); MONOCYTES # (AUTO) 0.5 K/uL (0.1-1.30); NEUTROPHILS # (AUTO) 2.6 K/uL (1.8-8.9); NEUTROPHILS % (AUTO) 58.9 % (43.0-81.0); PLATELET COUNT (AUTO) 93 K/uL (150-450); RED BLOOD CELL COUNT(AUTO) 3.55 MIL/uL (4.0-5.2); RED CELL DISTRIBUTION WIDTH 14.7 % (11.5-15.0); WHITE BLOOD COUNT (AUTO) 4.3 K/uL (4.3-11.0)
[2023-07-15 09:20] VITALS: O2SAT 96
[2023-07-15 10:12] LABS: CALCIUM, SERUM 8.2 mg/dL (8.5-10.1); CARBON DIOXIDE 33 mmol/L (21-32); CHLORIDE 102 mmol/L (98-107); CREATININE 0.5 mg/dL (0.6-1.3); GLUCOSE 118 mg/dL (74-106); PHOSPHORUS 4.3 mg/dL (2.5-4.9); POTASSIUM 3.8 mmol/L (3.5-5.1); SODIUM SERUM 139 mmol/L (136-145); UREA NITROGEN, BLOOD 13 mg/dL (7-18)
[2023-07-15 11:54] LABS: ANISOCYTOSIS 1+; BASOPHILS % (MANUAL) 0 % (0.0-2.0); EOSINOPHILS % (MANUAL) 4 % (0-4); HYPOCHROMASIA 1+; LYMPHOCYTES % (MANUAL) 22 % (16-48); MONOCYTES % (MANUAL) 11 % (0-11.0); NEUTROPHILS % (MANUAL) 63 (42-76); PLATELET ESTIMATE DECREASED
[2023-07-15 11:55] LABS: STOMATOCYTES 1+
[2023-07-15 16:00] VITALS: BP 145/95; TEMP 98.4; O2SAT 97
[2023-07-15 20:00] VITALS: BP 156/105; TEMP 97.5; O2SAT 97
[2023-07-16 08:07] LABS: BASOPHILS % (AUTO) 0.8 % (0.0-2.0); EOSINOPHILS # (AUTO) 0.2 K/uL (0.0-0.7); EOSINOPHILS % (AUTO) 3.6 % (0.0-6.0); HEMATOCRIT 37 % (33-45); HEMOGLOBIN 12.5 g/dL (11.5-14.8); LYMPHOCYTES # (AUTO) 1.1 K/uL (0.8-4.8); LYMPHOCYTES % (AUTO) 24.1 % (20.0-44.0); MEAN CORPUSCULAR HEMOGLOBIN 35 PG (26.0-33.0); MEAN CORPUSCULAR HGB CONC 34 g/dl (31.0-36.0); MEAN CORPUSCULAR VOLUME 103 fL (82-100); MONOCYTES # (AUTO) 0.6 K/uL (0.1-1.30); NEUTROPHILS # (AUTO) 2.8 K/uL (1.8-8.9); NEUTROPHILS % (AUTO) 59.5 % (43.0-81.0); PLATELET COUNT (AUTO) 95 K/uL (150-450); RED BLOOD CELL COUNT(AUTO) 3.59 MIL/uL (4.0-5.2); RED CELL DISTRIBUTION WIDTH 14.3 % (11.5-15.0); WHITE BLOOD COUNT (AUTO) 4.6 K/uL (4.3-11.0)
[2023-07-16 08:56] VITALS: BP 134/86; TEMP 99.5; O2SAT 96
[2023-07-16 09:00] LABS: ANISOCYTOSIS 1+; BASOPHILS % (MANUAL) 0 % (0.0-2.0); EOSINOPHILS % (MANUAL) 2 % (0-4); LYMPHOCYTES % (MANUAL) 23 % (16-48); MONOCYTES % (MANUAL) 10 % (0-11.0); NEUTROPHILS % (MANUAL) 65 (42-76); PLATELET ESTIMATE DECREASED; STOMATOCYTES 1+
[2023-07-16 09:07] LABS: CALCIUM, SERUM 8.7 mg/dL (8.5-10.1); CARBON DIOXIDE 33 mmol/L (21-32); CHLORIDE 104 mmol/L (98-107); CREATININE 0.5 mg/dL (0.6-1.3); GLUCOSE 108 mg/dL (74-106); MAGNESIUM 1.9 mg/dL (1.8-2.4); PHOSPHORUS 4.5 mg/dL (2.5-4.9); POTASSIUM 3.9 mmol/L (3.5-5.1); SODIUM SERUM 142 mmol/L (136-145); UREA NITROGEN, BLOOD 11 mg/dL (7-18)
[2023-07-16 09:34] VITALS: O2SAT 98
[2023-07-16 16:00] VITALS: BP 140/91; TEMP 99.5; O2SAT 97
[2023-07-16 20:00] VITALS: BP 151/92; TEMP 97.5; O2SAT 96
[2023-07-16 20:35] VITALS: O2SAT 96
[2023-07-17 08:16] LABS: BASOPHILS % (AUTO) 0.9 % (0.0-2.0); EOSINOPHILS # (AUTO) 0.2 K/uL (0.0-0.7); EOSINOPHILS % (AUTO) 4.2 % (0.0-6.0); HEMATOCRIT 37 % (33-45); HEMOGLOBIN 12.6 g/dL (11.5-14.8); LYMPHOCYTES # (AUTO) 1.2 K/uL (0.8-4.8); LYMPHOCYTES % (AUTO) 26.1 % (20.0-44.0); MEAN CORPUSCULAR HEMOGLOBIN 35 PG (26.0-33.0); MEAN CORPUSCULAR HGB CONC 34 g/dl (31.0-36.0); MEAN CORPUSCULAR VOLUME 101 fL (82-100); MONOCYTES # (AUTO) 0.4 K/uL (0.1-1.30); NEUTROPHILS # (AUTO) 2.8 K/uL (1.8-8.9); NEUTROPHILS % (AUTO) 59.8 % (43.0-81.0); PLATELET COUNT (AUTO) 103 K/uL (150-450); RED BLOOD CELL COUNT(AUTO) 3.62 MIL/uL (4.0-5.2); RED CELL DISTRIBUTION WIDTH 14.4 % (11.5-15.0); WHITE BLOOD COUNT (AUTO) 4.7 K/uL (4.3-11.0)
[2023-07-17 08:46] VITALS: BP 145/97; TEMP 98.1; O2SAT 97
[2023-07-17 08:59] LABS: CALCIUM, SERUM 8.6 mg/dL (8.5-10.1); CARBON DIOXIDE 34 mmol/L (21-32); CHLORIDE 104 mmol/L (98-107); CREATININE 0.5 mg/dL (0.6-1.3); GLUCOSE 107 mg/dL (74-106); MAGNESIUM 1.8 mg/dL (1.8-2.4); PHOSPHORUS 4.6 mg/dL (2.5-4.9); POTASSIUM 3.6 mmol/L (3.5-5.1); SODIUM SERUM 142 mmol/L (136-145); UREA NITROGEN, BLOOD 11 mg/dL (7-18)
[2023-07-17 14:59] VITALS: O2SAT 96
[2023-07-17 16:27] VITALS: BP 153/76; TEMP 98.6; O2SAT 96
[2023-07-17 20:00] VITALS: BP 122/72; TEMP 98.6; O2SAT 97
[2023-07-17 20:17] VITALS: O2SAT 97
[2023-07-18 06:53] LABS: EOSINOPHILS # (AUTO) 0.2 K/uL (0.0-0.7); EOSINOPHILS % (AUTO) 5.3 % (0.0-6.0); HEMATOCRIT 36 % (33-45); HEMOGLOBIN 12.3 g/dL (11.5-14.8); LYMPHOCYTES # (AUTO) 1.1 K/uL (0.8-4.8); MEAN CORPUSCULAR HEMOGLOBIN 35 PG (26.0-33.0); MEAN CORPUSCULAR HGB CONC 35 g/dl (31.0-36.0); MEAN CORPUSCULAR VOLUME 103 fL (82-100); MONOCYTES # (AUTO) 0.5 K/uL (0.1-1.30); MONOCYTES % (AUTO) 11.2 % (2.0-12.0); NEUTROPHILS # (AUTO) 2.4 K/uL (1.8-8.9); NEUTROPHILS % (AUTO) 55.5 % (43.0-81.0); PLATELET COUNT (AUTO) 104 K/uL (150-450); RED BLOOD CELL COUNT(AUTO) 3.49 MIL/uL (4.0-5.2); RED CELL DISTRIBUTION WIDTH 14.6 % (11.5-15.0); WHITE BLOOD COUNT (AUTO) 4.2 K/uL (4.3-11.0)
[2023-07-18 07:32] LABS: CALCIUM, SERUM 7.7 mg/dL (8.5-10.1); CARBON DIOXIDE 35 mmol/L (21-32); CHLORIDE 103 mmol/L (98-107); CREATININE 0.5 mg/dL (0.6-1.3); GLUCOSE 107 mg/dL (74-106); MAGNESIUM 1.9 mg/dL (1.8-2.4); PHOSPHORUS 4.3 mg/dL (2.5-4.9); POTASSIUM 3.7 mmol/L (3.5-5.1); SODIUM SERUM 142 mmol/L (136-145); UREA NITROGEN, BLOOD 12 mg/dL (7-18)
[2023-07-18 08:00] VITALS: BP 145/77; TEMP 99.3; O2SAT 98
[2023-07-18 08:22] VITALS: BP 145/77
[2023-07-18] MEDS ORDERED: CEPH-570 PO (10:00)
[2023-07-18] MEDS ORDERED: VANCOMYCIN HCL 125 MG/2.5 ML ORAL.SUSP PO SCH (18:00)
[2023-08-12] MEDS ORDERED: TOCILIZUMAB 400 MG INJ SCH (09:00)
== END 2023-07-18 12:45 | DRG 371 ==
LOC: MED 15:11
PROVIDERS: ADMIT Student in an Organized Health Care Education/Training Program; ATTEND Nurse Practitioner Acute Care
DX: A04.72 Enterocolitis due to Clostridium difficile, not specified as recurrent (principal); I50.33 Acute on chronic diastolic (congestive) heart failure; J96.21 Acute and chronic respiratory failure with hypoxia; N39.0 Urinary tract infection, site not specified; I48.20 Chronic atrial fibrillation, unspecified; E66.2 Morbid (severe) obesity with alveolar hypoventilation; M06.9 Rheumatoid arthritis, unspecified; I11.0 Hypertensive heart disease with heart failure; M19.90 Unspecified osteoarthritis, unspecified site; E11.9 Type 2 diabetes mellitus without complications; Z96.653 Presence of artificial knee joint, bilateral; Z96.82 Presence of neurostimulator; E78.5 Hyperlipidemia, unspecified; Z68.37 Body mass index [BMI] 37.0-37.9, adult; B96.89 Other specified bacterial agents as the cause of diseases classified elsewhere; W18.30XA Fall on same level, unspecified, initial encounter; Y92.9 Unspecified place or not applicable; Z79.01 Long term (current) use of anticoagulants
CPT/HCPCS: 36415; 71045-TC; 80048-TC; 83735-TC; 84100-TC; 84439-TC; 84443-TC; 85025-TC; 94760-TC; 94761-TC; 94799-TC; 97110-TC; 97116-TC; 97530-TC; A4223; G0378; J0696; J3490; J7050; J7060